=== PATIENT | female | born 1935 | race Caucasian/White ===

== ENCOUNTER 2016-05-23 11:27 | Day surgery (SDC) | payer MEDICARE, BC ==
[~2016-05-23 11:27] MED LIST: IV START KIT ONE; LACTATED RINGERS 1,000 ML ONE
[2016-05-23] MEDS ORDERED: LACTATED RINGERS 1,000 ML IV SCH (11:38)
[2016-05-23] MEDS ORDERED: LIDOCAINE 1% 2 ML VIAL ID PRN (11:38)
[2016-05-23] MEDS ORDERED: ONDANSETRON 4 MG/2ML 2 ML VIAL IV PRN (11:38)
[2016-05-23] MEDS ORDERED: PROPOFOL 20 ML IV ONE (12:08)
== END 2016-05-23 13:10 | disposition home or self-care (01) ==
LOC: SDC 11:27
PROVIDERS: ATTEND Surgery
PROC: 0DJD8ZZ Inspection of Lower Intestinal Tract, Via Natural or Artificial Opening Endoscopic (ICD-10-PCS; principal; 2016-05-23)
DX: D50.9 Iron deficiency anemia, unspecified (principal); R19.5 Other fecal abnormalities; K57.30 Diverticulosis of large intestine without perforation or abscess without bleeding; I10 Essential (primary) hypertension; E03.9 Hypothyroidism, unspecified; M81.0 Age-related osteoporosis without current pathological fracture; E78.5 Hyperlipidemia, unspecified; E87.1 Hypo-osmolality and hyponatremia; D89.2 Hypergammaglobulinemia, unspecified; G60.9 Hereditary and idiopathic neuropathy, unspecified; M79.7 Fibromyalgia; I73.9 Peripheral vascular disease, unspecified; M35.00 Sjogren syndrome, unspecified; K11.7 Disturbances of salivary secretion; Z79.82 Long term (current) use of aspirin; Z88.8 Allergy status to other drugs, medicaments and biological substances; Z87.891 Personal history of nicotine dependence
CPT/HCPCS: 45378; J7120